=== PATIENT | male | born 1965 | race African-American/Black ===

== ENCOUNTER 2017-08-27 09:36 | Emergency (ER) | payer MEDICARE, MEDICAID ==
[~2017-08-27] VITALS: Ht 175.3 cm; Wt 97.0 kg
[2017-08-27] MEDS ORDERED: OLAN10TA3 PO (09:40)
[2017-08-27 10:37] LABS: BG CARBOXYHEMOGLOBIN 3.1 % (0.5-1.5); BG DEOXYHEMOGLOBIN 3.9 % (0.0-5.0); BG HCO3 ACT 23.6 mmol/L (22.0-26.0); BG METHEMOGLOBIN 0.3 % (0.0-1.5); BG OXYHEMOGLOBIN 92.7 % (94.0-97.0); BG PCO2 39.4 mmHg (35.0-45.0); BG PH 7.396 (7.350-7.450); BG PO2 81.8 mmHg (75.0-100.0); BG SAMPLE SITE RIGHT RADIAL; BG TOTAL HEMOGLOBIN 14.4 g/dL (12.0-18.0); BG VENT MODE ROOM AIR
[2017-08-27 10:40] LABS: BASOPHILS % 0.5 % (0.0-2.0); EOSINOPHILS % 0.1 % (0.0-5.0); HEMOGLOBIN. 13.4 g/dL (14.0-18.0); LYMPHOCYTES % 17.9 % (20.0-50.0); MEAN CORPUSCULAR HEMOGLOBIN 27.1 pg (28.0-32.0); MEAN CORPUSCULAR VOLUME 84.6 fL (80.0-94.0); MONOCYTES % 6.2 % (2.0-8.0); NEUTROPHILS % 75.3 % (40.0-76.0); PLATELET 240 x1000/uL (130-400); RED BLOOD CELL COUNT 4.96 mill/uL (4.7-6.1); RED CELL DISTRIBUTION WIDTH 14.7 % (11.6-14.6)
[2017-08-27 10:47] LABS: CHLORIDE 105 mEq/L (98-107)
[2017-08-27 10:53] LABS: INR 1.2; PROTHROMBIN TIME 12.1 sec (9.4-11.6)
[2017-08-27 10:55] LABS: CARBON DIOXIDE 26 mEq/L (21-32); ETHANOL BLOOD < 10 mg/dL
[2017-08-27 12:23] LABS: CLARITY URINE CLEAR (CLEAR); COLOR URINE YELLOW (YELLOW); GLUCOSE URINE NEGATIVE (NEGATIVE); KETONES URINE 1+ (NEGATIVE); LEUKOCYTE ESTERASE URINE NEGATIVE (NEGATIVE); NITRITE URINE NEGATIVE (NEGATIVE); OCCULT BLOOD URINE NEGATIVE (NEGATIVE); PROTEIN URINE 1+ (NEGATIVE); SPECIFIC GRAVITY URINE 1.015 (1.005-1.030); UROBILINOGEN URINE 0.2 E.U./dL (0.2-1.0)
[2017-08-27 12:37] LABS: *AMPHETAMINES SCREEN URINE NEGATIVE (NEGATIVE); *BARBITURATES SCREEN URINE NEGATIVE (NEGATIVE); *BENZODIAZEPINES SCREEN URINE NEGATIVE (NEGATIVE); *COCAINE SCREEN URINE PRESUMTIVE POSITIVE (NEGATIVE); CANNABINOID URINE SCREEN NEGATIVE (NEGATIVE); METHADONE URINE SCREEN NEGATIVE (NEGATIVE); OPIATES URINE SCREEN NEGATIVE (NEGATIVE); PHENCYCLIDINE URINE SCREEN NEGATIVE (NEGATIVE)
[2017-08-28] MEDS ORDERED: LORAZEPAM 2MG/ML CPJ IM ONE (01:15)
[2017-08-28 13:25] VITALS: BP 100/51
== END 2017-08-28 13:50 ==
LOC: EDBD 09:36 → ER 10:05
DX: R45.851 Suicidal ideations (principal); R41.82 Altered mental status, unspecified; R53.83 Other fatigue; F20.9 Schizophrenia, unspecified; F31.9 Bipolar disorder, unspecified; F43.10 Post-traumatic stress disorder, unspecified; Z88.0 Allergy status to penicillin
CPT/HCPCS: 36415; 36600; 70450; 80053; 80305; 80307; 80329; 81001; 82375; 82805; 85025; 85610; 99285; G0482

== ENCOUNTER 2018-01-09 14:43 | Emergency (ER) | payer MEDICARE, MEDICAID ==
[~2018-01-09] VITALS: Ht 172.7 cm; Wt 112.0 kg
[~2018-01-09 14:43] MED LIST: OLAN10TA3 PO
[2018-01-09 16:14] LABS: BASOPHILS % 0.5 % (0.0-2.0); EOSINOPHILS % 1.5 % (0.0-5.0); HEMATOCRIT. 40.3 % (42.0-52.0); HEMOGLOBIN. 13.4 g/dL (14.0-18.0); LYMPHOCYTES % 43.2 % (20.0-50.0); MEAN CORPUSCULAR VOLUME 83.8 fL (80.0-94.0); MONOCYTES % 7.6 % (2.0-8.0); NEUTROPHILS % 47.2 % (40.0-76.0); PLATELET 254 x1000/uL (130-400); RED BLOOD CELL COUNT 4.81 mill/uL (4.7-6.1); RED CELL DISTRIBUTION WIDTH 14.8 % (11.6-14.6)
[2018-01-09 16:15] LABS: CHLORIDE 105 mEq/L (98-107)
[2018-01-09 17:55] VITALS: BP 148/87
== END 2018-01-09 18:05 | disposition home or self-care (01) ==
LOC: ER 15:48
DX: S80.01XA Contusion of right knee, initial encounter (principal); F31.9 Bipolar disorder, unspecified; X50.0XXA Overexertion from strenuous movement or load, initial encounter; Y93.73 Activity, racquet and hand sports; Y92.89 Other specified places as the place of occurrence of the external cause; Y99.8 Other external cause status; Z88.0 Allergy status to penicillin
CPT/HCPCS: 36415; 71045; 73562; 80053; 83880; 85025; 93971; 99285; L1830

== ENCOUNTER 2019-04-21 20:10 | Inpatient (IN) | payer MEDICARE, MEDICAID ==
[~2019-04-21] VITALS: Ht 170.2 cm; Wt 120.2 kg
[2019-04-21] MEDS ORDERED: MORPHINE SULFATE 4 MG/ML CPJ (NOT FOR IM USE) IV STA (20:28)
[2019-04-21] MEDS ORDERED: ONDANSETRON HCL 4MG/2ML INJ IV STA (20:28)
[2019-04-21] MEDS ORDERED: SODIUM CHLORIDE 0.9% 1,000 ML IV ONE (20:28)
[2019-04-21 21:13] LABS: BASOPHILS % 0.4 % (0.0-2.0); EOSINOPHILS % 0.7 % (0.0-5.0); HEMATOCRIT. 43.8 % (42.0-52.0); HEMOGLOBIN. 14.6 g/dL (14.0-18.0); LYMPHOCYTES % 27.7 % (20.0-50.0); MEAN CORPUSCULAR HEMOGLOBIN 28.5 pg (28.0-32.0); MEAN CORPUSCULAR VOLUME 85.5 fL (80.0-94.0); MEAN PLATELET VOLUME 8.6 fl (7.4-10.4); MONOCYTES % 7.2 % (2.0-8.0); PLATELET 231 x1000/uL (130-400); RED BLOOD CELL COUNT 5.12 mill/uL (4.7-6.1); RED CELL DISTRIBUTION WIDTH 14.1 % (11.6-14.6)
[2019-04-21 21:18] LABS: CHLORIDE 106 mEq/L (98-107)
[2019-04-21 21:19] LABS: INR 1.2; PROTHROMBIN TIME 12.5 sec (9.6-11.0)
[2019-04-21] MEDS ORDERED: IOHEXOL-300 100 ML BOTTLE ONE (22:53)
[2019-04-21] MEDS ORDERED: METRONIDAZOLE 500 MG PREMIX 100 ML IV NR (23:30)
[2019-04-21] MEDS ORDERED: LEVOFLOXACIN 750MG PREMIX 150 ML IV NR (23:30)
[2019-04-22] VITALS (7 sets, daily range): BP systolic 110–166; BP diastolic 55–92
[2019-04-22] MEDS ORDERED: DEXT 5%/0.45% NACL 1000ML 1,000 ML IV SCH ×2 (03:00→18:00)
[2019-04-22] MEDS ORDERED: LEVOFLOXACIN 750MG PREMIX 150 ML IV SCH ×2 (03:00→23:00)
[2019-04-22] MEDS ORDERED: METRONIDAZOLE 500 MG PREMIX 100 ML IV SCH (03:00)
[2019-04-22] MEDS ORDERED: DEXT 5%/0.45% NACL KCL 20MEQ/L 1,000 ML IV ONE (05:00)
[2019-04-22] MEDS: METRONIDAZOLE 500 MG PREMIX 100 ML IV SCH ×2 (09:26→17:31)
[2019-04-22 09:29] LABS: BASOPHILS % 0.5 % (0.0-2.0); EOSINOPHILS % 0.8 % (0.0-5.0); HEMATOCRIT. 40.2 % (42.0-52.0); HEMOGLOBIN. 13.3 g/dL (14.0-18.0); LYMPHOCYTES % 30.1 % (20.0-50.0); MEAN CORPUSCULAR HEMOGLOBIN 28.4 pg (28.0-32.0); MEAN CORPUSCULAR VOLUME 85.5 fL (80.0-94.0); MEAN PLATELET VOLUME 8.5 fl (7.4-10.4); NEUTROPHILS % 57.6 % (40.0-76.0); PLATELET 230 x1000/uL (130-400); RED BLOOD CELL COUNT 4.71 mill/uL (4.7-6.1); RED CELL DISTRIBUTION WIDTH 13.8 % (11.6-14.6)
[2019-04-22 09:41] LABS: CHLORIDE 107 mEq/L (98-107)
[2019-04-22 09:49] LABS: PHOSPHORUS 3.2 mg/dL (2.5-4.9)
[2019-04-22] MEDS: OLANZAPINE 10MG TABLET PO SCH (11:00)
[2019-04-22] MEDS: MORPHINE SULFATE 4 MG/ML CPJ (NOT FOR IM USE) IV PRN (14:02)
[2019-04-22] MEDS: ONDANSETRON HCL 4MG/2ML INJ IV PRN (14:05)
[2019-04-22] MEDS: LORAZEPAM 2MG/ML CPJ IV SCH (15:29)
[2019-04-23] VITALS: BP 129/88
[2019-04-23] MEDS: METRONIDAZOLE 500 MG PREMIX 100 ML IV SCH ×3 (01:09→18:03)
[2019-04-23] MEDS: ONDANSETRON HCL 4MG/2ML INJ IV PRN (03:44)
[2019-04-23] MEDS: MORPHINE SULFATE 4 MG/ML CPJ (NOT FOR IM USE) IV PRN ×2 (03:44→15:13)
[2019-04-23 04:00] VITALS: BP 137/98
[2019-04-23 07:39] LABS: BASOPHILS % 0.3 % (0.0-2.0); CHLORIDE 106 mEq/L (98-107); EOSINOPHILS % 1.9 % (0.0-5.0); HEMATOCRIT. 40.7 % (42.0-52.0); HEMOGLOBIN. 13.6 g/dL (14.0-18.0); LYMPHOCYTES % 36.4 % (20.0-50.0); MEAN CORPUSCULAR HEMOGLOBIN 28.7 pg (28.0-32.0); MEAN CORPUSCULAR VOLUME 85.9 fL (80.0-94.0); MEAN PLATELET VOLUME 8.2 fl (7.4-10.4); MONOCYTES % 10.3 % (2.0-8.0); NEUTROPHILS % 51.1 % (40.0-76.0); PLATELET 218 x1000/uL (130-400); RED BLOOD CELL COUNT 4.74 mill/uL (4.7-6.1)
[2019-04-23 07:46] LABS: PHOSPHORUS 3.5 mg/dL (2.5-4.9)
[2019-04-23 07:47] LABS: LDL CHOLESTEROL 140 mg/dL (5-100)
[2019-04-23 07:48] LABS: HDL CHOLESTEROL 44 mg/dL (40-59)
[2019-04-23 08:00] VITALS: BP 146/91
[2019-04-23] MEDS: OLANZAPINE 10MG TABLET PO SCH (08:46)
[2019-04-23 11:20] VITALS: BP 125/72
[2019-04-23] MEDS: LORAZEPAM 2MG/ML CPJ IV SCH (11:45)
[2019-04-23 16:29] VITALS: BP 141/87
[2019-04-23 20:00] VITALS: BP 130/90
[2019-04-23] MEDS ORDERED: HYDROCODONE/ACETAMINOPHEN 5/325MG TABLET PO PRN (21:15)
[2019-04-24] VITALS: BP 108/59
[2019-04-24 04:00] VITALS: BP 106/51
[2019-04-24] MEDS: METRONIDAZOLE 500MG TABLET PO SCH ×3 (05:54→21:02)
[2019-04-24 08:00] VITALS: BP 136/86
[2019-04-24 08:04] LABS: BASOPHILS % 0.4 % (0.0-2.0); EOSINOPHILS % 1.9 % (0.0-5.0); HEMATOCRIT. 43.2 % (42.0-52.0); HEMOGLOBIN. 14.2 g/dL (14.0-18.0); LYMPHOCYTES % 32.5 % (20.0-50.0); MEAN CORPUSCULAR HEMOGLOBIN 28.2 pg (28.0-32.0); MEAN CORPUSCULAR VOLUME 85.7 fL (80.0-94.0); MEAN PLATELET VOLUME 8.9 fl (7.4-10.4); MONOCYTES % 9.4 % (2.0-8.0); NEUTROPHILS % 55.8 % (40.0-76.0); PLATELET 206 x1000/uL (130-400); RED BLOOD CELL COUNT 5.04 mill/uL (4.7-6.1); RED CELL DISTRIBUTION WIDTH 13.9 % (11.6-14.6)
[2019-04-24 08:07] LABS: CHLORIDE 105 mEq/L (98-107)
[2019-04-24] MEDS: OLANZAPINE 10MG TABLET PO SCH (09:00)
[2019-04-24] MEDS ORDERED: ONDANSETRON 4MG ODT PO PRN (10:45)
[2019-04-24] MEDS: LEVOFLOXACIN 500MG TABLET PO SCH (11:02)
[2019-04-24] MEDS: LORAZEPAM 2MG/ML CPJ IV SCH (11:45)
[2019-04-24 12:00] VITALS: BP 141/98
[2019-04-24 15:42] VITALS: BP 102/72
[2019-04-24 20:00] VITALS: BP 120/83
[2019-04-25] VITALS: BP 145/96
[2019-04-25 04:00] VITALS: BP 113/74
[2019-04-25] MEDS: METRONIDAZOLE 500MG TABLET PO SCH ×3 (05:30→21:19)
[2019-04-25 06:39] LABS: BASOPHILS % 0.5 % (0.0-2.0); EOSINOPHILS % 1.7 % (0.0-5.0); HEMATOCRIT. 42.4 % (42.0-52.0); HEMOGLOBIN. 14.2 g/dL (14.0-18.0); LYMPHOCYTES % 34.2 % (20.0-50.0); MEAN CORPUSCULAR HEMOGLOBIN 28.5 pg (28.0-32.0); MEAN CORPUSCULAR VOLUME 85.4 fL (80.0-94.0); MEAN PLATELET VOLUME 8.5 fl (7.4-10.4); MONOCYTES % 7.8 % (2.0-8.0); NEUTROPHILS % 55.8 % (40.0-76.0); PLATELET 248 x1000/uL (130-400); RED BLOOD CELL COUNT 4.96 mill/uL (4.7-6.1); RED CELL DISTRIBUTION WIDTH 13.8 % (11.6-14.6)
[2019-04-25 06:49] LABS: CHLORIDE 107 mEq/L (98-107)
[2019-04-25 08:00] VITALS: BP 107/62
[2019-04-25] MEDS: OLANZAPINE 10MG TABLET PO SCH (08:12)
[2019-04-25] MEDS: LEVOFLOXACIN 500MG TABLET PO SCH (11:25)
[2019-04-25 11:59] VITALS: BP 118/80
[2019-04-25 16:00] VITALS: BP 127/86
[2019-04-25 20:00] VITALS: BP 140/87
[2019-04-26] VITALS: BP 123/86
[2019-04-26 04:00] VITALS: BP 125/75
[2019-04-26] MEDS: METRONIDAZOLE 500MG TABLET PO SCH ×3 (05:56→21:18)
[2019-04-26 08:00] VITALS: BP 100/53
[2019-04-26] MEDS: OLANZAPINE 10MG TABLET PO SCH (09:00)
[2019-04-26] MEDS: LEVOFLOXACIN 500MG TABLET PO SCH (10:21)
[2019-04-26 12:00] VITALS: BP 114/67
[2019-04-26 16:00] VITALS: BP 118/87
[2019-04-26 20:00] VITALS: BP 112/73
[2019-04-27] VITALS: BP 105/61
[2019-04-27 04:00] VITALS: BP 122/73
[2019-04-27] MEDS: METRONIDAZOLE 500MG TABLET PO SCH ×2 (06:29→13:33)
[2019-04-27 07:50] LABS: CHLORIDE 108 mEq/L (98-107)
[2019-04-27 08:00] VITALS: BP 120/72
[2019-04-27 08:07] LABS: BASOPHILS % 0.5 % (0.0-2.0); EOSINOPHILS % 1.3 % (0.0-5.0); HEMATOCRIT. 46.5 % (42.0-52.0); HEMOGLOBIN. 14.8 g/dL (14.0-18.0); LYMPHOCYTES % 34.7 % (20.0-50.0); MEAN CORPUSCULAR HEMOGLOBIN 27.9 pg (28.0-32.0); MEAN CORPUSCULAR VOLUME 87.9 fL (80.0-94.0); MEAN PLATELET VOLUME 9.9 fl (7.4-10.4); MONOCYTES % 8.1 % (2.0-8.0); NEUTROPHILS % 55.4 % (40.0-76.0); PLATELET 164 x1000/uL (130-400); RED BLOOD CELL COUNT 5.29 mill/uL (4.7-6.1); RED CELL DISTRIBUTION WIDTH 15.1 % (11.6-14.6)
[2019-04-27] MEDS: OLANZAPINE 10MG TABLET PO SCH (08:39)
[2019-04-27] MEDS: LEVOFLOXACIN 500MG TABLET PO SCH (10:18)
[2019-04-27 11:58] VITALS: BP 130/86
[2019-04-27 13:51] VITALS: BP 130/86
== END 2019-04-27 17:01 | disposition home or self-care (01) | DRG 445 ==
LOC: ER 20:10 → 6EST 23:27 → EDBEDREQ 23:29 → EDBEDREQTM 23:29 → ENRESERV 23:40
PROVIDERS: ADMIT Family Medicine Adult Medicine; ATTEND Family Medicine Adult Medicine
DX: K80.71 Calculus of gallbladder and bile duct without cholecystitis with obstruction (principal); N39.0 Urinary tract infection, site not specified; N20.0 Calculus of kidney; K76.0 Fatty (change of) liver, not elsewhere classified; Z96.643 Presence of artificial hip joint, bilateral; F14.90 Cocaine use, unspecified, uncomplicated; Z88.0 Allergy status to penicillin; Z79.899 Other long term (current) drug therapy
CPT/HCPCS: 36415; 74177; 74181; 78227; 80048; 80061; 80076; 83735; 84100; 84443; 96361; 96374; 96375; 99285; A9537; J1956; J2270; J2405; J3490; J7030; Q0162; Q9967

== ENCOUNTER 2021-01-24 11:50 | Emergency (ER) | payer MEDICARE, MEDICAID ==
[~2021-01-24] VITALS: Ht 172.7 cm; Wt 67.0 kg
[~2021-01-24 11:50] MED LIST changes: +OLAN5TAB3 MT
[2021-01-24] MEDS ORDERED: DICYCLOMINE 10 MG/5 ML ORAL SYR PO STA (12:22)
[2021-01-24] MEDS ORDERED: VISCOUS LIDOCAINE 2% 15 ML UDC PO STA (12:22)
[2021-01-24] MEDS ORDERED: MAGNESIUM/ALUMINUM HYDROXIDE/SIMETHICONE 30ML UDC PO STA (12:22)
[2021-01-24] MEDS ORDERED: FAMOTIDINE 20MG/2ML VIAL IV STA (12:22)
[2021-01-24 13:08] LABS: BASOPHILS % 0.6 % (0.0-2.0); EOSINOPHILS % 1.5 % (0.0-5.0); HEMATOCRIT. 39.4 % (42.0-52.0); HEMOGLOBIN. 13.2 g/dL (14.0-18.0); MEAN CORPUSCULAR HEMOGLOBIN 28.6 pg (28.0-32.0); MEAN CORPUSCULAR VOLUME 85.5 fL (80.0-94.0); MEAN PLATELET VOLUME 8.2 fl (7.4-10.4); MONOCYTES % 8.4 % (2.0-8.0); NEUTROPHILS % 55.5 % (40.0-76.0); PLATELET 253 x1000/uL (130-400); RED BLOOD CELL COUNT 4.61 mill/uL (4.7-6.1); RED CELL DISTRIBUTION WIDTH 14.7 % (11.6-14.6)
[2021-01-24 13:14] LABS: CHLORIDE 108 mEq/L (98-107)
[2021-01-24 13:15] LABS: INR 1.1; PROTHROMBIN TIME 11.4 sec (9.6-11.0)
[2021-01-24] MEDS ORDERED: ONDA4TAB5 PO (13:41)
[2021-01-24] MEDS ORDERED: OMEP20CA14 PO (13:50)
[2021-01-24] MEDS ORDERED: FAMOTIDINE 20MG TABLET PO ONE (14:00)
[2021-01-24 14:18] VITALS: BP 152/88
== END 2021-01-24 14:21 | disposition home or self-care (01) ==
LOC: ER 11:50
DX: R10.13 Epigastric pain (principal); R11.2 Nausea with vomiting, unspecified; F14.10 Cocaine abuse, uncomplicated; F12.10 Cannabis abuse, uncomplicated; F15.10 Other stimulant abuse, uncomplicated; Z88.0 Allergy status to penicillin; Z98.890 Other specified postprocedural states
CPT/HCPCS: 36415; 80053; 85025; 93005; 99284

== ENCOUNTER 2021-03-17 03:40 | Emergency (ER) | payer MEDICARE, MEDICAID ==
[~2021-03-17] VITALS: Ht 170.2 cm; Wt 117.0 kg
[~2021-03-17 03:40] MED LIST changes: +OMEP20CA14 PO; +ONDA4TAB5 PO
[2021-03-17] MEDS ORDERED: ASPIRIN 81MG TABLET PO ONE (04:15)
[2021-03-17 04:27] LABS: BASOPHILS % 0.6 % (0.0-2.0); EOSINOPHILS % 3.4 % (0.0-5.0); HEMATOCRIT. 37.3 % (42.0-52.0); HEMOGLOBIN. 12.6 g/dL (14.0-18.0); LYMPHOCYTES % 29.7 % (20.0-50.0); MEAN CORPUSCULAR HEMOGLOBIN 28.8 pg (28.0-32.0); MEAN CORPUSCULAR VOLUME 85.4 fL (80.0-94.0); MEAN PLATELET VOLUME 7.9 fl (7.4-10.4); MONOCYTES % 7.1 % (2.0-8.0); NEUTROPHILS % 59.2 % (40.0-76.0); PLATELET 237 x1000/uL (130-400); RED BLOOD CELL COUNT 4.37 mill/uL (4.7-6.1); RED CELL DISTRIBUTION WIDTH 14.6 % (11.6-14.6)
[2021-03-17 04:43] LABS: CHLORIDE 110 mEq/L (98-107)
[2021-03-17 04:47] LABS: ETHANOL BLOOD < 10 mg/dL
[2021-03-17 05:38] LABS: *AMPHETAMINES SCREEN URINE NEGATIVE (NEGATIVE); *BARBITURATES SCREEN URINE NEGATIVE (NEGATIVE); CANNABINOID URINE SCREEN NEGATIVE (NEGATIVE)
[2021-03-17 05:39] LABS: *BENZODIAZEPINES SCREEN URINE PRESUMTIVE POSITIVE (NEGATIVE); *COCAINE SCREEN URINE PRESUMTIVE POSITIVE (NEGATIVE); METHADONE URINE SCREEN NEGATIVE (NEGATIVE); OPIATES URINE SCREEN NEGATIVE (NEGATIVE); PHENCYCLIDINE URINE SCREEN NEGATIVE (NEGATIVE)
[2021-03-17] MEDS ORDERED: BENZ-16 MT (05:49)
[2021-03-17 06:00] VITALS: BP 165/94
== END 2021-03-17 06:00 | disposition home or self-care (01) ==
LOC: ER 03:58
DX: R05 Cough (principal); F14.10 Cocaine abuse, uncomplicated; F12.10 Cannabis abuse, uncomplicated; F15.10 Other stimulant abuse, uncomplicated; Z88.0 Allergy status to penicillin; Z90.49 Acquired absence of other specified parts of digestive tract
CPT/HCPCS: 36415; 71045; 80053; 80305; 80320; 83880; 84484; 85025; 93005; 99285; G0480

== ENCOUNTER 2022-02-04 12:46 | Emergency (ER) | payer MEDICARE, MEDICAID ==
[~2022-02-04] VITALS: Ht 172.7 cm; Wt 120.0 kg
[~2022-02-04 12:46] MED LIST changes: +BENZ-16 MT
[2022-02-04 14:12] LABS: BASOPHILS % 0.2 % (0.0-2.0); EOSINOPHILS % 0.5 % (0.0-5.0); HEMATOCRIT. 44.6 % (42.0-52.0); HEMOGLOBIN. 14.7 g/dL (14.0-18.0); LYMPHOCYTES % 15.9 % (20.0-50.0); MEAN CORPUSCULAR HEMOGLOBIN 28.5 pg (28.0-32.0); MEAN CORPUSCULAR VOLUME 86.3 fL (80.0-94.0); MEAN PLATELET VOLUME 7.9 fl (7.4-10.4); MONOCYTES % 8.2 % (2.0-8.0); NEUTROPHILS % 75.2 % (40.0-76.0); PLATELET 277 x1000/uL (130-400); RED BLOOD CELL COUNT 5.17 mill/uL (4.7-6.1); RED CELL DISTRIBUTION WIDTH 14.9 % (11.6-14.6)
[2022-02-04 14:23] LABS: CHLORIDE 99 mEq/L (98-107)
[2022-02-04 14:34] LABS: ETHANOL BLOOD < 10 mg/dL; PHOSPHORUS 3.7 mg/dL (2.5-4.9)
[2022-02-04 18:18] LABS: CLARITY URINE TURBID (CLEAR); COLOR URINE DARK YELLOW (YELLOW); KETONES URINE 1+ (NEGATIVE); LEUKOCYTE ESTERASE URINE TRACE (NEGATIVE); NITRITE URINE NEGATIVE (NEGATIVE); OCCULT BLOOD URINE NEGATIVE (NEGATIVE); PROTEIN URINE 2+ (NEGATIVE); SPECIFIC GRAVITY URINE 1.041 (1.005-1.030)
[2022-02-04 18:28] LABS: *AMPHETAMINES SCREEN URINE NEGATIVE (NEGATIVE); *BARBITURATES SCREEN URINE NEGATIVE (NEGATIVE); *BENZODIAZEPINES SCREEN URINE NEGATIVE (NEGATIVE); *COCAINE SCREEN URINE PRESUMTIVE POSITIVE (NEGATIVE); CANNABINOID URINE SCREEN NEGATIVE (NEGATIVE); METHADONE URINE SCREEN NEGATIVE (NEGATIVE); OPIATES URINE SCREEN NEGATIVE (NEGATIVE); PHENCYCLIDINE URINE SCREEN NEGATIVE (NEGATIVE)
[2022-02-04 19:06] VITALS: BP 135/74
== END 2022-02-04 19:05 | disposition home or self-care (01) ==
LOC: ER 13:09
DX: R53.1 Weakness (principal); F19.10 Other psychoactive substance abuse, uncomplicated; F10.229 Alcohol dependence with intoxication, unspecified; Y90.0 Blood alcohol level of less than 20 mg/100 ml; Z90.49 Acquired absence of other specified parts of digestive tract; Z87.891 Personal history of nicotine dependence; Z88.0 Allergy status to penicillin; Z20.822 Contact with and (suspected) exposure to COVID-19
CPT/HCPCS: 36415; 71045; 80053; 80305; 80320; 81003; 83690; 83735; 83880; 84100; 84484; 85025; 87426; 93005; 99285; C9803; G0480

== ENCOUNTER 2022-03-22 12:58 | Emergency (ER) | payer MEDICARE, MEDICAID ==
[~2022-03-22] VITALS: Ht 170.2 cm; Wt 109.0 kg
[2022-03-22] MEDS ORDERED: PREDNISONE 20MG TABLET PO ONE (16:00)
[2022-03-22] MEDS ORDERED: P20 MT (16:08)
[2022-03-22] MEDS ORDERED: HYDRALAZINE 20MG/ML VIAL IV ONE (17:00)
[2022-03-22] MEDS ORDERED: ASPIRIN 81MG TABLET PO ONE (17:00)
[2022-03-22 18:12] LABS: BASOPHILS % 0.6 % (0.0-2.0); EOSINOPHILS % 1.4 % (0.0-5.0); HEMATOCRIT. 43.3 % (42.0-52.0); HEMOGLOBIN. 14.2 g/dL (14.0-18.0); LYMPHOCYTES % 34.8 % (20.0-50.0); MEAN CORPUSCULAR HEMOGLOBIN 28.5 pg (28.0-32.0); MEAN CORPUSCULAR VOLUME 87.2 fL (80.0-94.0); MEAN PLATELET VOLUME 9.2 fl (7.4-10.4); MONOCYTES % 6.9 % (2.0-8.0); NEUTROPHILS % 56.3 % (40.0-76.0); PLATELET 245 x1000/uL (130-400); RED BLOOD CELL COUNT 4.96 mill/uL (4.7-6.1); RED CELL DISTRIBUTION WIDTH 14.5 % (11.6-14.6)
[2022-03-22 18:28] LABS: CHLORIDE 103 mEq/L (98-107)
[2022-03-22 18:30] VITALS: BP 169/98
== END 2022-03-22 22:42 | disposition home or self-care (01) ==
LOC: ER 12:58
DX: R21 Rash and other nonspecific skin eruption (principal); I10 Essential (primary) hypertension; F10.229 Alcohol dependence with intoxication, unspecified; Z98.890 Other specified postprocedural states; Y90.0 Blood alcohol level of less than 20 mg/100 ml; F14.10 Cocaine abuse, uncomplicated; Z88.0 Allergy status to penicillin
CPT/HCPCS: 36415; 71045; 76604; 80053; 83880; 84484; 85025; 93005; 93880; 96374; 99285; J0360; J7512

== ENCOUNTER → 2022-04-19 | Outpatient (CLI) | payer MEDICARE, MEDICAID ==
[~2022-04-19] MED LIST changes: +P20 MT
[2022-04-19 12:00] LABS: CHLORIDE 105 mEq/L (98-107)
[2022-04-19 12:10] LABS: HDL CHOLESTEROL 48 mg/dL (40-59); LDL CHOLESTEROL 171 mg/dL (5-100)
== END | disposition home or self-care (01) ==
LOC: CARD 10:36
PROVIDERS: ATTEND Internal Medicine
DX: I08.1 Rheumatic disorders of both mitral and tricuspid valves (principal); R07.9 Chest pain, unspecified; I10 Essential (primary) hypertension; E78.5 Hyperlipidemia, unspecified; E11.9 Type 2 diabetes mellitus without complications
CPT/HCPCS: 36415; 80053; 80061; 83036; 93306

== ENCOUNTER → 2022-05-03 | Outpatient (CLI) | payer MEDICARE, MEDICAID ==
[~2022-05-03] VITALS: Ht 170.2 cm; Wt 126.1 kg
[~2022-05-03] MED LIST changes: +IOHEXOL-350 100 ML BOTTLE ONE; +NITROGLYCERIN SPRAY/4.9GM CAN TL ONE
== END | disposition home or self-care (01) ==
LOC: CT 09:45
PROVIDERS: ATTEND Internal Medicine
DX: I10 Essential (primary) hypertension (principal); R06.02 Shortness of breath; R07.89 Other chest pain
CPT/HCPCS: 75571; Q9967

== ENCOUNTER 2024-04-22 23:56 | Emergency (ER) | payer MEDICARE, MEDICAID ==
[~2024-04-22] VITALS: Ht 170.2 cm; Wt 114.0 kg
[~2024-04-22 23:56] MED LIST changes: +ALBU6.7H15 INH; +ASCO-339 MT; -BENZ-16 MT; -IOHEXOL-350 100 ML BOTTLE ONE; -NITROGLYCERIN SPRAY/4.9GM CAN TL ONE; -OLAN10TA3 PO; -OLAN5TAB3 MT; -ONDA4TAB5 PO; -P20 MT; +ZINC100T8 MT
[2024-04-23 00:13] VITALS: O2SAT 98
[2024-04-23] MEDS ORDERED: CEFTRIAXONE SODIUM 500MG VIAL IM ONE (01:30)
[2024-04-23] MEDS ORDERED: IBUPROFEN 600MG TABLET PO ONE (01:30)
[2024-04-23] MEDS ORDERED: DOXY100C5 MT (01:40)
[2024-04-23 02:15] VITALS: BP 140/82; PULSE 74; RESP 20; TEMP 98.4
[2024-04-24] MEDS ORDERED: ACYC200C31 PO (02:00)
== END 2024-04-23 02:17 | disposition home or self-care (01) ==
LOC: ER 23:56
DX: J02.9 Acute pharyngitis, unspecified (principal); F14.10 Cocaine abuse, uncomplicated; I10 Essential (primary) hypertension; Z88.8 Allergy status to other drugs, medicaments and biological substances; Z88.0 Allergy status to penicillin; Z98.890 Other specified postprocedural states
CPT/HCPCS: 99283; J0696

== ENCOUNTER 2024-04-24 00:02 | Emergency (ER) | payer MEDICARE, MEDICAID ==
[~2024-04-24] VITALS: Ht 162.6 cm; Wt 113.0 kg
[~2024-04-24 00:02] MED LIST changes: +DOXY100C5 MT
[2024-04-24 00:04] VITALS: BP 182/110; PULSE 83; RESP 20; TEMP 98.3; O2SAT 98
[2024-04-24] MEDS ORDERED: DEXAMETHASONE 4MG/ML 1ML VIAL IM ONE (01:15)
[2024-04-24] MEDS ORDERED: AZITHROMYCIN 500 MG TABLET PO ONE (01:45)
[2024-04-24] MEDS ORDERED: ACYC200C31 PO (02:00)
== END 2024-04-24 03:32 | disposition home or self-care (01) ==
LOC: ER 00:16
DX: J02.9 Acute pharyngitis, unspecified (principal); F14.10 Cocaine abuse, uncomplicated; I10 Essential (primary) hypertension; Z88.0 Allergy status to penicillin; Z88.1 Allergy status to other antibiotic agents; Z88.8 Allergy status to other drugs, medicaments and biological substances; Z79.899 Other long term (current) drug therapy; Z98.890 Other specified postprocedural states; Z96.643 Presence of artificial hip joint, bilateral
CPT/HCPCS: 87070; 87430; 99283

== ENCOUNTER 2024-06-27 07:15 | Emergency (ER) | payer MEDICARE, MEDICAID ==
[~2024-06-27] VITALS: Ht 170.2 cm; Wt 119.0 kg
[~2024-06-27 07:15] MED LIST changes: +ACYC200C31 PO
[2024-06-27 07:36] VITALS: TEMP 98.3; O2SAT 100
[2024-06-27] MEDS: ACETAMINOPHEN 325MG TABLET PO NR (08:44)
[2024-06-27 12:44] VITALS: BP 134/80; PULSE 74; RESP 16; O2SAT 99
== END 2024-06-27 12:45 | disposition home or self-care (01) ==
LOC: ER 07:15
DX: M54.2 Cervicalgia (principal); E78.00 Pure hypercholesterolemia, unspecified; I10 Essential (primary) hypertension; F14.90 Cocaine use, unspecified, uncomplicated; F10.20 Alcohol dependence, uncomplicated; Z79.899 Other long term (current) drug therapy; Z90.49 Acquired absence of other specified parts of digestive tract; Z88.8 Allergy status to other drugs, medicaments and biological substances; Z88.1 Allergy status to other antibiotic agents; Z88.0 Allergy status to penicillin; Y90.9 Presence of alcohol in blood, level not specified
CPT/HCPCS: 99284

== ENCOUNTER 2024-08-30 15:57 | Emergency (ER) | payer MEDICARE, MEDICAID ==
[~2024-08-30] VITALS: Ht 175.3 cm; Wt 90.0 kg
[2024-08-30 15:58] VITALS: BP 159/99; PULSE 90; RESP 16; TEMP 98; O2SAT 99
== END 2024-08-30 19:34 | disposition left against medical advice (07) ==
LOC: ER 15:57
DX: Z00.00 Encounter for general adult medical examination without abnormal findings (principal); E78.00 Pure hypercholesterolemia, unspecified; F10.90 Alcohol use, unspecified, uncomplicated; I10 Essential (primary) hypertension; Z90.49 Acquired absence of other specified parts of digestive tract; Z88.8 Allergy status to other drugs, medicaments and biological substances; Z88.1 Allergy status to other antibiotic agents; Z88.0 Allergy status to penicillin; Z79.899 Other long term (current) drug therapy; Z79.624 Long term (current) use of inhibitors of nucleotide synthesis; Y90.9 Presence of alcohol in blood, level not specified
CPT/HCPCS: 99283

== ENCOUNTER 2025-01-17 15:04 | Emergency (ER) | payer MEDICARE, MEDICAID ==
[~2025-01-17] VITALS: Ht 175.3 cm; Wt 100.0 kg
[2025-01-17 15:05] VITALS: O2SAT 99
[2025-01-17 16:06] LABS: BASOPHILS % 0.6 % (0.0-2.0); EOSINOPHILS % 0.5 % (0.0-5.0); HEMOGLOBIN. 14.8 g/dL (14.0-18.0); LYMPHOCYTES % 25.8 % (20.0-50.0); MEAN CORPUSCULAR HEMOGLOBIN 28.3 pg (28.0-32.0); MEAN CORPUSCULAR HGB CONC 32.9 g/dL (31.0-37.0); MEAN CORPUSCULAR VOLUME 86.1 fL (80.0-94.0); MONOCYTES % 8.6 % (2.0-8.0); NEUTROPHILS % 64.5 % (40.0-76.0); PLATELET 242 x1000/uL (130-400); RED BLOOD CELL COUNT 5.23 mill/uL (4.7-6.1); RED CELL DISTRIBUTION WIDTH 16.1 % (11.6-14.6); WHITE BLOOD COUNT 6.7 x1000/uL (4.5-11.0)
[2025-01-17 16:19] LABS: CHLORIDE 106 mEq/L (98-107); POTASSIUM 3.2 mEq/L (3.5-5.1); SODIUM 142 mEq/L (136-145)
[2025-01-17 16:20] LABS: CALCIUM 9.3 mg/dL (8.7-10.4); CARBON DIOXIDE 28 mEq/L (21-32)
[2025-01-17 16:25] LABS: CREATININE 0.9 mg/dL (0.6-1.3); GLUCOSE 92 mg/dL (70-105); UREA NITROGEN BLOOD 8 mg/dL (9-23)
[2025-01-17 16:26] LABS: ETHANOL BLOOD < 10 mg/dL (<10)
[2025-01-17 16:27] LABS: ACETAMINOPHEN < 2 ug/mL (10-30); CREATINE KINASE 341 IU/L (46-171)
[2025-01-17 19:24] LABS: CLARITY URINE CLOUDY (CLEAR); COLOR URINE YELLOW (YELLOW); GLUCOSE URINE NEGATIVE (NEGATIVE); KETONES URINE 1+ (NEGATIVE); LEUKOCYTE ESTERASE URINE 3+ (NEGATIVE); NITRITE URINE NEGATIVE (NEGATIVE); OCCULT BLOOD URINE TRACE (NEGATIVE); PH URINE 6.5 (4.5-8.0); PROTEIN URINE 1+ (NEGATIVE); SPECIFIC GRAVITY URINE 1.018 (1.005-1.030)
[2025-01-17] MEDS: POTASSIUM CHLORIDE 20MEQ/PACKET PO ONE (19:30)
[2025-01-17 19:37] LABS: *AMPHETAMINES SCREEN URINE NEGATIVE (NEGATIVE); *BARBITURATES SCREEN URINE NEGATIVE (NEGATIVE); *BENZODIAZEPINES SCREEN URINE NEGATIVE (NEGATIVE); *COCAINE SCREEN URINE PRESUMPTIVE POSITIVE (NEGATIVE); METHADONE URINE SCREEN NEGATIVE (NEGATIVE)
[2025-01-17 19:38] LABS: CANNABINOID URINE SCREEN PRESUMPTIVE POSITIVE (NEGATIVE); ECSTASY MDMA SCREEN URINE NEGATIVE (NEGATIVE); OPIATES URINE SCREEN NEGATIVE (NEGATIVE); PHENCYCLIDINE URINE SCREEN PRESUMTIVE POSITIVE (NEGATIVE)
[2025-01-17 19:39] LABS: BACTERIA URINE 2+
[2025-01-17 19:40] LABS: RBC URINE 0-2 /hpf (0-2); SQUAMOUS EPITHELIAL CELL URINE FEW /lpf (RARE/1+); WBC URINE TNTC /hpf (0-2)
[2025-01-17] MEDS: NITROFURANTOIN 100MG M/M CAPSULE PO SCH (22:25)
[2025-01-17] MEDS: OLANZAPINE 10 MG/VIAL IM ONE (22:26)
[2025-01-18] MEDS: AMLODIPINE 10MG TABLET PO ONE (19:24)
[2025-01-18] MEDS: LORAZEPAM 0.5MG TABLET PO ONE (20:30)
[2025-01-19] MEDS: HYDRALAZINE HCL 50MG TABLET PO ONE (00:08)
[2025-01-19 02:25] VITALS: BP 134/78; PULSE 104; RESP 17; TEMP 37.2; O2SAT 95
[2025-01-19] MEDS ORDERED: SERTRALINE HCL 25MG TABLET PO SCH (09:00)
== END 2025-01-19 02:46 ==
LOC: ER 15:04
DX: R45.851 Suicidal ideations (principal); E87.6 Hypokalemia; N30.00 Acute cystitis without hematuria; E11.9 Type 2 diabetes mellitus without complications; E78.00 Pure hypercholesterolemia, unspecified; F17.200 Nicotine dependence, unspecified, uncomplicated; I10 Essential (primary) hypertension; Z79.624 Long term (current) use of inhibitors of nucleotide synthesis; Z79.899 Other long term (current) drug therapy; Z88.0 Allergy status to penicillin; Z88.1 Allergy status to other antibiotic agents; Z88.8 Allergy status to other drugs, medicaments and biological substances; Z20.822 Contact with and (suspected) exposure to COVID-19
CPT/HCPCS: 80305; 80048; 81003; 80307; 80329; 80320; 82550; 85025; 87086; 87186; 36415; 96372; 99285; 87426; J3490; G0480

== ENCOUNTER 2025-01-29 06:27 | Inpatient (IN) | payer MEDICARE, MEDICAID ==
[~2025-01-29] VITALS: Ht 170.2 cm; Wt 108.9 kg
[2025-01-29 06:34] VITALS: O2SAT 100
[2025-01-29 07:52] LABS: BASOPHILS % 0.3 % (0.0-2.0); HEMATOCRIT. 41.2 % (42.0-52.0); HEMOGLOBIN. 13.3 g/dL (14.0-18.0); LYMPHOCYTES % 8.3 % (20.0-50.0); MEAN CORPUSCULAR HEMOGLOBIN 27.5 pg (28.0-32.0); MEAN CORPUSCULAR HGB CONC 32.4 g/dL (31.0-37.0); MEAN CORPUSCULAR VOLUME 84.9 fL (80.0-94.0); MEAN PLATELET VOLUME 8.9 fl (7.4-10.4); MONOCYTES % 5.4 % (2.0-8.0); PLATELET 230 x1000/uL (130-400); RED BLOOD CELL COUNT 4.86 mill/uL (4.7-6.1); RED CELL DISTRIBUTION WIDTH 14.7 % (11.6-14.6); WHITE BLOOD COUNT 16.2 x1000/uL (4.5-11.0)
[2025-01-29 07:57] LABS: POTASSIUM 3.7 mEq/L (3.5-5.1)
[2025-01-29 07:59] LABS: CALCIUM 8.9 mg/dL (8.7-10.4)
[2025-01-29 08:08] LABS: CLARITY URINE TURBID (CLEAR); COLOR URINE DARK YELLOW (YELLOW); GLUCOSE URINE NEGATIVE (NEGATIVE); KETONES URINE NEGATIVE (NEGATIVE); LEUKOCYTE ESTERASE URINE 3+ (NEGATIVE); NITRITE URINE NEGATIVE (NEGATIVE); OCCULT BLOOD URINE 2+ (NEGATIVE); PROTEIN URINE 2+ (NEGATIVE); SPECIFIC GRAVITY URINE 1.021 (1.005-1.030)
[2025-01-29 08:27] LABS: CREATININE 1.5 mg/dL (0.6-1.3)
[2025-01-29 08:28] LABS: SQUAMOUS EPITHELIAL CELL URINE RARE /lpf (RARE/1+); WBC URINE TNTC /hpf (0-2)
[2025-01-29 08:29] LABS: BACTERIA URINE 4+
[2025-01-29] MEDS: KETOROLAC 30MG/ML VIAL IM ONE (08:42)
[2025-01-29] MEDS: CEFTRIAXONE 2GM/50ML 50 ML IV ONE (09:57)
[2025-01-29] MEDS: SODIUM CHLORIDE 0.9% 1,000 ML IV ONE (09:57)
[2025-01-29 10:09] LABS: LACTIC ACID 2.5 mmol/L (0.4-2.0)
[2025-01-29] MEDS: SODIUM CHLORIDE 0.9% (SEPSIS BOLUS) IV ONE (10:28)
[2025-01-29 11:30] VITALS: O2SAT 95
[2025-01-29] MEDS ORDERED: ACETAMINOPHEN 325MG TABLET PO PRN ×2 (11:45)
[2025-01-29] MEDS ORDERED: IPRATROPIUM/ALBUTEROL 0.5-3(2.5)MG/3ML NEB HHN PRN (11:45)
[2025-01-29] MEDS ORDERED: CLONIDINE 0.1MG TABLET PO PRN (11:45)
[2025-01-29] MEDS ORDERED: CEFEPIME 1GM IN DEXT 5% 50ML IV SCH (11:45)
[2025-01-29] MEDS ORDERED: SODIUM CHLORIDE 0.9% 1,000 ML IV SCH (11:45)
[2025-01-29] MEDS ORDERED: DOCUSATE SODIUM 100MG CAPSULE PO PRN (11:45)
[2025-01-29] MEDS ORDERED: GUAIFENESIN 200MG/10ML SUGAR FREE UDC PO PRN (11:45)
[2025-01-29] MEDS ORDERED: ONDANSETRON HCL 4MG/2ML INJ IV PRN (11:45)
[2025-01-29] MEDS ORDERED: MORPHINE SULFATE 2 MG/ML INJ (NOT FOR IM USE) IV NR (12:15)
[2025-01-29] MEDS ORDERED: TAMSULOSIN HCL 0.4MG SR CAPSULE PO SCH (12:15)
[2025-01-29] MEDS ORDERED: PANTOPRAZOLE SODIUM 40 MG/VIAL IV SCH (12:15)
[2025-01-29 14:16] VITALS: BP 145/94; PULSE 94; RESP 18; TEMP 36.6
[2025-01-29] MEDS ORDERED: CEFEPIME 2GM/50ML DUPLEX 50 ML IV SCH (21:00)
[2025-01-30 14:08] LABS: *AMPHETAMINES SCREEN URINE NEGATIVE (NEGATIVE); *BARBITURATES SCREEN URINE NEGATIVE (NEGATIVE); *BENZODIAZEPINES SCREEN URINE NEGATIVE (NEGATIVE); *COCAINE SCREEN URINE PRESUMPTIVE POSITIVE (NEGATIVE); CANNABINOID URINE SCREEN PRESUMPTIVE POSITIVE (NEGATIVE); ECSTASY MDMA SCREEN URINE NEGATIVE (NEGATIVE); METHADONE URINE SCREEN NEGATIVE (NEGATIVE); OPIATES URINE SCREEN NEGATIVE (NEGATIVE); PHENCYCLIDINE URINE SCREEN PRESUMTIVE POSITIVE (NEGATIVE)
== END 2025-01-29 16:00 | disposition left against medical advice (07) | DRG 872 ==
LOC: ER 06:47 → 7EST 11:15 → EDBEDREQTM 11:17 → EDBEDREQ 11:17 → ENRESERV 11:37
PROVIDERS: ADMIT Internal Medicine; ATTEND Internal Medicine
DX: A41.9 Sepsis, unspecified organism (principal); N17.9 Acute kidney failure, unspecified; Z59.00 Homelessness unspecified; N39.0 Urinary tract infection, site not specified; N20.2 Calculus of kidney with calculus of ureter; D64.9 Anemia, unspecified; E78.00 Pure hypercholesterolemia, unspecified; I10 Essential (primary) hypertension; M48.061 Spinal stenosis, lumbar region without neurogenic claudication; F32.A Depression, unspecified; N23 Unspecified renal colic; Z53.29 Procedure and treatment not carried out because of patient's decision for other reasons; F17.210 Nicotine dependence, cigarettes, uncomplicated; F19.10 Other psychoactive substance abuse, uncomplicated; Z96.643 Presence of artificial hip joint, bilateral; Z79.899 Other long term (current) drug therapy; Z87.440 Personal history of urinary (tract) infections; Z88.0 Allergy status to penicillin; Z88.1 Allergy status to other antibiotic agents; Z90.49 Acquired absence of other specified parts of digestive tract
CPT/HCPCS: 36415; 71045; 74176; 76770; 80048; 80305; 81003; 82962; 83605; 84145; 85025; 87077; 87186; 93005; 99285; J0692; J0696; J1885; J7030